=== PATIENT | male | born 1940 | race Two or more races ===

== ENCOUNTER 2022-08-28 17:53 | Emergency (ER) | payer OTHER ==
[~2022-08-28] VITALS: Ht 170.2 cm; Wt 88.0 kg
[2022-08-28] MEDS ORDERED: PROSCAR5 MG PO (18:14)
[2022-08-28] MEDS ORDERED: TAMS0.4C PO (18:14)
[2022-08-28] MEDS ORDERED: DITROPAN XL5 MG PO (18:14)
[2022-08-28] MEDS ORDERED: ASA81 MG PO (18:14)
[2022-08-28] MEDS ORDERED: GLUMETZA500 MG PO (18:15)
[2022-08-28] MEDS ORDERED: PREVACID15 M1 PO (18:15)
[2022-08-28] MEDS ORDERED: WELLBUTRIN SR100 MG PO (18:15)
[2022-08-28] MEDS ORDERED: GABAPENTIN400 MG PO (18:15)
== END 2022-08-28 23:13 | disposition home or self-care (01) ==
LOC: ER 17:53
DX: S09.8XXA Other specified injuries of head, initial encounter (principal); W07.XXXA Fall from chair, initial encounter; Y93.89 Activity, other specified; Y92.63 Factory as the place of occurrence of the external cause